=== PATIENT | female | born 1935 ===

== ENCOUNTER 2021-01-31 06:58 | Inpatient (IN) | payer OTHER ==
[2021-01-31] MEDS ORDERED: HALOPERIDOL DECANOATE 100 MG/ML IM ONE ×2 (08:02→09:29)
[2021-01-31] MEDS ORDERED: SODIUM CHLORIDE 0.9% 500 ML INFUS.BAG IV ONE (08:05)
[2021-01-31] MEDS ORDERED: HALOPERIDOL LACTATE 5 MG/ML ONE ×2 (08:07→09:38)
[2021-01-31 08:17] LABS: ALBUMIN 3.4 g/dl (3.4-5.0); CALCIUM 9.3 mg/dL (8.5-10.1); MAGNESIUM 2.3 mg/dL (1.8-2.4)
[2021-01-31 08:18] LABS: BASO % 0.4 % (0-2.0); BLOOD UREA NITROGEN 21.3 mg/dL (7-18); EOS % 0.1 % (0-4.5); HEMATOCRIT 33.6 % (32.4-45.2); HEMOGLOBIN 11.3 GM/dL (10.7-15.3); LYMPH % 8.4 % (8-40); MCH 27.9 pg (25.7-33.7); MCHC 33.6 g/dl (32.0-36.0); MEAN PLT VOLUME 8.2 fl (7.5-11.1); MONO % 7.7 % (3.8-10.2); NEUT % 83.4 % (42.8-82.8); PLATELET COUNT 399 K/MM3 (134-434); RBC 4.05 M/mm3 (3.60-5.2); RDW 15.2 % (11.6-15.6); WHITE BLOOD COUNT 9.9 K/mm3 (4.0-10.0)
[2021-01-31 08:21] LABS: CREATININE 0.7 mg/dL (0.55-1.3)
[2021-01-31 08:22] LABS: TOT PROT 7.8 g/dl (6.4-8.2)
[2021-01-31 08:27] LABS: EPI CELLS 4 /uL (0-25.1); HYALINE CASTS 1 /uL (0-3.1); PH,URINE 7.5 (5.0-8.0); URINE APPEARANCE CLEAR; URINE BACTERIA 5 /uL (0-1359); URINE BILIRUBIN NEGATIVE (NEGATIVE); URINE COLOR YELLOW; URINE GLUCOSE (UA) NEGATIVE (NEGATIVE); URINE KETONE TRACE (NEGATIVE); URINE LEUK ESTERASE TRACE (NEGATIVE); URINE NITRITE NEGATIVE (NEGATIVE); URINE PROTEIN 1+ (NEGATIVE); URINE RBC 8 /uL (0-23.9); URINE WBC 1 /uL (0-25.8)
[2021-01-31] MEDS ORDERED: DEXTROSE 5%-0.45% SALINE 1,000 ML IV SCH ×2 (12:30→14:24)
[2021-01-31] MEDS ORDERED: PATIENT'S OWN MEDICATION (NON-FORMULARY) (Olopatadine Hcl [Olopatadine Hcl] 2.5 ML Drops) OD PRN (14:44)
[2021-01-31] MEDS ORDERED: THIAMINE HCL 200 MG/2 ML VIAL IVPB ONE (15:09)
[2021-01-31] MEDS: ACETAMINOPHEN 325 MG TABLET (FP) PO PRN (15:18)
[2021-01-31] MEDS ORDERED: PT OWN MED DRAWER 7, Y5N ONE (17:13)
[2021-01-31] MEDS: DEXTROSE 5%-0.45% SALINE 1,000 ML IV SCH (17:17)
[2021-01-31] MEDS: DONEPEZIL HCL 10 MG TABLET (FP) PO SCH (20:37)
[2021-01-31] MEDS: LATANOPROST 0.005% OPHTH SOLN 2.5ML BOTTLE OU SCH (21:08)
[2021-01-31] MEDS: MELATONIN 5 MG TABLETS PO SCH (21:08)
[2021-02-01] MEDS: ALPRAZolam 1 MG TABLET PO PRN ×2 (06:39→22:15)
[2021-02-01 07:34] LABS: HEMATOCRIT 32.8 % (32.4-45.2); MCH 28.5 pg (25.7-33.7); MCHC 33.5 g/dl (32.0-36.0); PLATELET COUNT 349 K/MM3 (134-434); RBC 3.86 M/mm3 (3.60-5.2); RDW 15.2 % (11.6-15.6); WHITE BLOOD COUNT 7.4 K/mm3 (4.0-10.0)
[2021-02-01 08:03] LABS: CREATININE 0.5 mg/dL (0.55-1.3)
[2021-02-01 08:04] LABS: ALBUMIN 2.9 g/dl (3.4-5.0); BLOOD UREA NITROGEN 9.6 mg/dL (7-18)
[2021-02-01 08:05] LABS: BILIRUBIN,TOTAL 0.8 mg/dL (0.2-1); TOT PROT 6.6 g/dl (6.4-8.2)
[2021-02-01 08:06] LABS: CALCIUM 8.8 mg/dL (8.5-10.1); MAGNESIUM 1.9 mg/dL (1.8-2.4); PHOSPHOROUS 3.1 mg/dL (2.5-4.9)
[2021-02-01] MEDS ORDERED: ENOXAPARIN NA (PORCINE) 40 MG/0.4 ML DISP.SYRIN SQ SCH (10:00)
[2021-02-01] MEDS: DEXTROSE 5%-0.45% SALINE 1,000 ML IV SCH ×2 (11:04→17:25)
[2021-02-01] MEDS: ENOXAPARIN NA (PORCINE) 30 MG/0.3 ML DISP.SYRIN SQ SCH (11:44)
[2021-02-01] MEDS: busPIRone HCL 5 MG TABLET PO SCH (11:45)
[2021-02-01] MEDS: THIAMINE HCL 100 MG TABLET (FP) PO SCH (11:45)
[2021-02-01] MEDS: MULTIVITAMINS (DAILY MVI) TABLET (FP) PO SCH (11:45)
[2021-02-01] MEDS: DONEPEZIL HCL 10 MG TABLET (FP) PO SCH (22:15)
[2021-02-01] MEDS: MELATONIN 5 MG TABLETS PO SCH (22:15)
[2021-02-01] MEDS: LATANOPROST 0.005% OPHTH SOLN 2.5ML BOTTLE OU SCH (22:16)
[2021-02-02] MEDS: DEXTROSE 5%-0.45% SALINE 1,000 ML IV SCH ×2 (06:36→22:08)
[2021-02-02 07:29] LABS: BASO % 0.6 % (0-2.0); EOS % 3.1 % (0-4.5); HEMATOCRIT 30.5 % (32.4-45.2); HEMOGLOBIN 10.5 GM/dL (10.7-15.3); LYMPH % 16.8 % (8-40); MCH 28.1 pg (25.7-33.7); MCHC 34.4 g/dl (32.0-36.0); MEAN CELL VOLUME 81.8 fl (80-96); MEAN PLT VOLUME 7.3 fl (7.5-11.1); MONO % 8.5 % (3.8-10.2); PLATELET COUNT 324 K/MM3 (134-434); RBC 3.73 M/mm3 (3.60-5.2); RDW 14.7 % (11.6-15.6); WHITE BLOOD COUNT 5.1 K/mm3 (4.0-10.0)
[2021-02-02 07:54] LABS: ALBUMIN 2.7 g/dl (3.4-5.0); CALCIUM 8.3 mg/dL (8.5-10.1); MAGNESIUM 1.8 mg/dL (1.8-2.4)
[2021-02-02 07:58] LABS: CREATININE 0.4 mg/dL (0.55-1.3)
[2021-02-02 07:59] LABS: BILIRUBIN,TOTAL 0.9 mg/dL (0.2-1); TOT PROT 6.4 g/dl (6.4-8.2)
[2021-02-02] MEDS: ENOXAPARIN NA (PORCINE) 30 MG/0.3 ML DISP.SYRIN SQ SCH (10:20)
[2021-02-02] MEDS: ACETAMINOPHEN 325 MG TABLET (FP) PO PRN (10:20)
[2021-02-02] MEDS: MULTIVITAMINS (DAILY MVI) TABLET (FP) PO SCH (10:21)
[2021-02-02] MEDS: THIAMINE HCL 100 MG TABLET (FP) PO SCH (10:21)
[2021-02-02] MEDS: busPIRone HCL 5 MG TABLET PO SCH (10:21)
[2021-02-02 12:41] VITALS: BMI 18.7
[2021-02-02] MEDS ORDERED: POTASSIUM CHLORIDE ORAL LIQUID 20 MEQ/15 ML PO ONE (12:50)
[2021-02-02] MEDS: MELATONIN 5 MG TABLETS PO SCH (22:06)
[2021-02-02] MEDS: DONEPEZIL HCL 10 MG TABLET (FP) PO SCH (22:06)
[2021-02-02] MEDS: LATANOPROST 0.005% OPHTH SOLN 2.5ML BOTTLE OU SCH (22:12)
[2021-02-03] MEDS: LEVOTHYROXINE NA 25 MCG TABLET (FP) PO SCH (06:59)
[2021-02-03 08:20] LABS: BASO % 0.5 % (0-2.0); EOS % 1.1 % (0-4.5); HEMATOCRIT 31.7 % (32.4-45.2); HEMOGLOBIN 10.7 GM/dL (10.7-15.3); LYMPH % 12.1 % (8-40); MCH 27.8 pg (25.7-33.7); MCHC 33.8 g/dl (32.0-36.0); MEAN CELL VOLUME 82.3 fl (80-96); MEAN PLT VOLUME 7.4 fl (7.5-11.1); MONO % 6.3 % (3.8-10.2); PLATELET COUNT 395 K/MM3 (134-434); RBC 3.85 M/mm3 (3.60-5.2); WHITE BLOOD COUNT 5.2 K/mm3 (4.0-10.0)
[2021-02-03 08:39] LABS: CALCIUM 8.9 mg/dL (8.5-10.1)
[2021-02-03 08:43] LABS: CREATININE 0.4 mg/dL (0.55-1.3)
[2021-02-03 08:44] LABS: BILIRUBIN,TOTAL 0.7 mg/dL (0.2-1); TOT PROT 6.8 g/dl (6.4-8.2)
[2021-02-03] MEDS: ENOXAPARIN NA (PORCINE) 30 MG/0.3 ML DISP.SYRIN SQ SCH (09:45)
[2021-02-03] MEDS: busPIRone HCL 5 MG TABLET PO SCH (09:45)
[2021-02-03] MEDS: THIAMINE HCL 100 MG TABLET (FP) PO SCH (09:45)
[2021-02-03] MEDS: MULTIVITAMINS (DAILY MVI) TABLET (FP) PO SCH (09:45)
[2021-02-03] MEDS: DEXTROSE 5%-0.45% SALINE 1,000 ML IV SCH (19:08)
[2021-02-03] MEDS: DONEPEZIL HCL 10 MG TABLET (FP) PO SCH (21:11)
[2021-02-03] MEDS: MELATONIN 5 MG TABLETS PO SCH (22:11)
[2021-02-03] MEDS: LATANOPROST 0.005% OPHTH SOLN 2.5ML BOTTLE OU SCH (22:12)
[2021-02-04] MEDS: LEVOTHYROXINE NA 25 MCG TABLET (FP) PO SCH (06:00)
[2021-02-04 08:31] LABS: BASO % 0.4 % (0-2.0); EOS % 1.5 % (0-4.5); HEMATOCRIT 35.2 % (32.4-45.2); HEMOGLOBIN 11.6 GM/dL (10.7-15.3); LYMPH % 14.9 % (8-40); MCH 27.2 pg (25.7-33.7); MEAN CELL VOLUME 82.4 fl (80-96); MEAN PLT VOLUME 8.1 fl (7.5-11.1); MONO % 7.8 % (3.8-10.2); NEUT % 75.4 % (42.8-82.8); PLATELET COUNT 458 K/MM3 (134-434); RBC 4.27 M/mm3 (3.60-5.2); RDW 15.2 % (11.6-15.6); WHITE BLOOD COUNT 6.8 K/mm3 (4.0-10.0)
[2021-02-04 08:32] LABS: ALBUMIN 3.1 g/dl (3.4-5.0); BLOOD UREA NITROGEN 6.6 mg/dL (7-18); CALCIUM 9.1 mg/dL (8.5-10.1)
[2021-02-04 08:36] LABS: CREATININE 0.5 mg/dL (0.55-1.3)
[2021-02-04 08:37] LABS: BILIRUBIN,TOTAL 0.6 mg/dL (0.2-1)
[2021-02-04] MEDS: ENOXAPARIN NA (PORCINE) 30 MG/0.3 ML DISP.SYRIN SQ SCH (09:45)
[2021-02-04] MEDS: MULTIVITAMINS (DAILY MVI) TABLET (FP) PO SCH (09:46)
[2021-02-04] MEDS: busPIRone HCL 5 MG TABLET PO SCH (09:46)
[2021-02-04] MEDS: THIAMINE HCL 100 MG TABLET (FP) PO SCH (09:46)
[2021-02-04 12:21] LABS: MAGNESIUM 1.9 mg/dL (1.8-2.4)
[2021-02-04] MEDS: OLOPATADINE 0.1% OD SCH ×2 (16:41→22:50)
[2021-02-04] MEDS ORDERED: PT OWN MED DRAWER 7, Y5N ONE (22:40)
[2021-02-04] MEDS: MELATONIN 5 MG TABLETS PO SCH (22:44)
[2021-02-04] MEDS: DONEPEZIL HCL 10 MG TABLET (FP) PO SCH (22:44)
[2021-02-04] MEDS: LATANOPROST 0.005% OPHTH SOLN 2.5ML BOTTLE OU SCH (22:50)
[2021-02-05] MEDS: DEXTROSE 5%-0.45% SALINE 1,000 ML IV SCH (01:12)
[2021-02-05] MEDS: LEVOTHYROXINE NA 25 MCG TABLET (FP) PO SCH (06:28)
[2021-02-05 07:49] LABS: ALBUMIN 2.9 g/dl (3.4-5.0); BLOOD UREA NITROGEN 12.1 mg/dL (7-18); MAGNESIUM 2.1 mg/dL (1.8-2.4)
[2021-02-05 07:51] LABS: BASO % 0.6 % (0-2.0); EOS % 1.6 % (0-4.5); HEMATOCRIT 31.9 % (32.4-45.2); HEMOGLOBIN 10.5 GM/dL (10.7-15.3); LYMPH % 18.7 % (8-40); MCH 27.3 pg (25.7-33.7); MCHC 32.8 g/dl (32.0-36.0); MEAN CELL VOLUME 83.2 fl (80-96); MEAN PLT VOLUME 7.8 fl (7.5-11.1); MONO % 8.5 % (3.8-10.2); NEUT % 70.6 % (42.8-82.8); PLATELET COUNT 383 K/MM3 (134-434); RBC 3.83 M/mm3 (3.60-5.2); RDW 14.9 % (11.6-15.6); WHITE BLOOD COUNT 5.3 K/mm3 (4.0-10.0)
[2021-02-05 07:52] LABS: CREATININE 0.5 mg/dL (0.55-1.3)
[2021-02-05 07:53] LABS: TOT PROT 6.4 g/dl (6.4-8.2)
[2021-02-05 07:54] LABS: BILIRUBIN,TOTAL 0.6 mg/dL (0.2-1)
[2021-02-05] MEDS ORDERED: PT OWN MED DRAWER 7, Y5N ONE (09:06)
[2021-02-05] MEDS: MULTIVITAMINS (DAILY MVI) TABLET (FP) PO SCH (09:17)
[2021-02-05] MEDS: THIAMINE HCL 100 MG TABLET (FP) PO SCH (09:17)
[2021-02-05] MEDS: busPIRone HCL 5 MG TABLET PO SCH (09:17)
[2021-02-05] MEDS: OLOPATADINE 0.1% OD SCH ×2 (09:21→22:32)
[2021-02-05] MEDS: ALPRAZolam 1 MG TABLET PO PRN (18:02)
[2021-02-05] MEDS: DONEPEZIL HCL 10 MG TABLET (FP) PO SCH (22:31)
[2021-02-05] MEDS: MELATONIN 5 MG TABLETS PO SCH (22:31)
[2021-02-05] MEDS: LATANOPROST 0.005% OPHTH SOLN 2.5ML BOTTLE OU SCH (22:31)
[2021-02-06] MEDS: LEVOTHYROXINE NA 25 MCG TABLET (FP) PO SCH (06:26)
[2021-02-06 07:14] LABS: BASO % 0.8 % (0-2.0); EOS % 3.2 % (0-4.5); HEMATOCRIT 29.8 % (32.4-45.2); HEMOGLOBIN 9.9 GM/dL (10.7-15.3); MCH 27.6 pg (25.7-33.7); MCHC 33.2 g/dl (32.0-36.0); MEAN CELL VOLUME 83.2 fl (80-96); MEAN PLT VOLUME 7.3 fl (7.5-11.1); MONO % 9.8 % (3.8-10.2); NEUT % 65.2 % (42.8-82.8); PLATELET COUNT 361 10^3/uL (134-434); RBC 3.59 M/mm3 (3.60-5.2); RDW 15.2 % (11.6-15.6); WHITE BLOOD COUNT 5.3 K/mm3 (4.0-10.0)
[2021-02-06 07:37] LABS: ALBUMIN 2.7 g/dl (3.4-5.0); BLOOD UREA NITROGEN 16.8 mg/dL (7-18); CALCIUM 8.9 mg/dL (8.5-10.1); MAGNESIUM 2.3 mg/dL (1.8-2.4)
[2021-02-06 07:40] LABS: CREATININE 0.5 mg/dL (0.55-1.3)
[2021-02-06 07:42] LABS: BILIRUBIN,TOTAL 0.6 mg/dL (0.2-1); TOT PROT 5.9 g/dl (6.4-8.2)
[2021-02-06] MEDS: THIAMINE HCL 100 MG TABLET (FP) PO SCH (10:01)
[2021-02-06] MEDS: busPIRone HCL 5 MG TABLET PO SCH (10:01)
[2021-02-06] MEDS: ALPRAZolam 1 MG TABLET PO PRN ×2 (10:02→21:13)
[2021-02-06] MEDS: MULTIVITAMINS (DAILY MVI) TABLET (FP) PO SCH (10:03)
[2021-02-06] MEDS: OLOPATADINE 0.1% OD SCH ×2 (10:03→22:42)
[2021-02-06] MEDS ORDERED: PT OWN MED DRAWER 7, Y5N ONE (10:04)
[2021-02-06] MEDS: ACETAMINOPHEN 325 MG TABLET (FP) PO PRN ×2 (15:28→20:31)
[2021-02-06] MEDS: DONEPEZIL HCL 10 MG TABLET (FP) PO SCH (20:31)
[2021-02-06] MEDS: BACITRACIN 15 GM TUBE TOPICAL OINTMENT TP SCH (21:23)
[2021-02-06] MEDS: MELATONIN 5 MG TABLETS PO SCH (21:34)
[2021-02-06] MEDS: LATANOPROST 0.005% OPHTH SOLN 2.5ML BOTTLE OU SCH (22:42)
[2021-02-07] MEDS ORDERED: ALPRAZolam 0.25 MG TABLET PO ONE (04:28)
[2021-02-07] MEDS: ACETAMINOPHEN 325 MG TABLET (FP) PO PRN ×2 (04:35→10:05)
[2021-02-07] MEDS: LEVOTHYROXINE NA 25 MCG TABLET (FP) PO SCH (06:15)
[2021-02-07] MEDS: MULTIVITAMINS (DAILY MVI) TABLET (FP) PO SCH (09:47)
[2021-02-07] MEDS: THIAMINE HCL 100 MG TABLET (FP) PO SCH (09:47)
[2021-02-07] MEDS: busPIRone HCL 5 MG TABLET PO SCH (09:47)
[2021-02-07] MEDS: ALPRAZolam 1 MG TABLET PO PRN ×2 (09:47→19:30)
[2021-02-07] MEDS: BACITRACIN 15 GM TUBE TOPICAL OINTMENT TP SCH ×2 (10:05→21:10)
[2021-02-07] MEDS: QUEtiapine FUMARATE 25 MG TABLET PO SCH ×2 (10:05→21:10)
[2021-02-07] MEDS: OLOPATADINE 0.1% OD SCH ×2 (10:05→21:11)
[2021-02-07 11:31] LABS: EOS % 2.6 % (0-4.5); HEMATOCRIT 31.7 % (32.4-45.2); HEMOGLOBIN 10.8 GM/dL (10.7-15.3); LYMPH % 11.7 % (8-40); MCH 27.9 pg (25.7-33.7); MEAN CELL VOLUME 82.1 fl (80-96); MEAN PLT VOLUME 7.5 fl (7.5-11.1); MONO % 6.4 % (3.8-10.2); NEUT % 78.3 % (42.8-82.8); PLATELET COUNT 466 10^3/uL (134-434); RBC 3.86 M/mm3 (3.60-5.2); RDW 15.1 % (11.6-15.6); WHITE BLOOD COUNT 8.2 K/mm3 (4.0-10.0)
[2021-02-07 11:55] LABS: ALBUMIN 3.2 g/dl (3.4-5.0); BLOOD UREA NITROGEN 16.6 mg/dL (7-18); CALCIUM 9.1 mg/dL (8.5-10.1)
[2021-02-07 11:56] LABS: MAGNESIUM 2.1 mg/dL (1.8-2.4)
[2021-02-07 11:59] LABS: CREATININE 0.6 mg/dL (0.55-1.3)
[2021-02-07 12:00] LABS: BILIRUBIN,TOTAL 0.8 mg/dL (0.2-1); TOT PROT 6.8 g/dl (6.4-8.2)
[2021-02-07 17:18] LABS: EPI CELLS 12 /uL (0-25.1); HYALINE CASTS 2 /uL (0-3.1); PH,URINE 6.5 (5.0-8.0); URINE APPEARANCE CLEAR; URINE BACTERIA 42 /uL (0-1359); URINE BILIRUBIN NEGATIVE (NEGATIVE); URINE COLOR YELLOW; URINE GLUCOSE (UA) NEGATIVE (NEGATIVE); URINE KETONE NEGATIVE (NEGATIVE); URINE LEUK ESTERASE TRACE (NEGATIVE); URINE NITRITE NEGATIVE (NEGATIVE); URINE PROTEIN NEGATIVE (NEGATIVE); URINE RBC 10 /uL (0-23.9); URINE UROBILINOGEN 0.2 mg/dL (0.2-1.0); URINE WBC 20 /uL (0-25.8)
[2021-02-07] MEDS: DONEPEZIL HCL 10 MG TABLET (FP) PO SCH (20:03)
[2021-02-07] MEDS: MELATONIN 5 MG TABLETS PO SCH (21:10)
[2021-02-07] MEDS: LATANOPROST 0.005% OPHTH SOLN 2.5ML BOTTLE OU SCH (21:11)
[2021-02-08] MEDS: LEVOTHYROXINE NA 25 MCG TABLET (FP) PO SCH (06:01)
[2021-02-08] MEDS: MULTIVITAMINS (DAILY MVI) TABLET (FP) PO SCH (10:43)
[2021-02-08] MEDS: THIAMINE HCL 100 MG TABLET (FP) PO SCH (10:43)
[2021-02-08] MEDS: busPIRone HCL 5 MG TABLET PO SCH (10:43)
[2021-02-08] MEDS: QUEtiapine FUMARATE 25 MG TABLET PO SCH ×2 (10:44→21:04)
[2021-02-08] MEDS: BACITRACIN 15 GM TUBE TOPICAL OINTMENT TP SCH ×2 (10:44→21:05)
[2021-02-08] MEDS: OLOPATADINE 0.1% OD SCH ×2 (10:44→21:06)
[2021-02-08] MEDS: ALPRAZolam 1 MG TABLET PO PRN (12:08)
[2021-02-08] MEDS: DONEPEZIL HCL 10 MG TABLET (FP) PO SCH (21:04)
[2021-02-08] MEDS: MELATONIN 5 MG TABLETS PO SCH (21:05)
[2021-02-08] MEDS: LATANOPROST 0.005% OPHTH SOLN 2.5ML BOTTLE OU SCH (21:12)
[2021-02-09] MEDS: LEVOTHYROXINE NA 25 MCG TABLET (FP) PO SCH (06:31)
[2021-02-09] MEDS: BACITRACIN 15 GM TUBE TOPICAL OINTMENT TP SCH ×2 (09:49→21:56)
[2021-02-09] MEDS: QUEtiapine FUMARATE 25 MG TABLET PO SCH ×2 (09:49→21:28)
[2021-02-09] MEDS: busPIRone HCL 5 MG TABLET PO SCH (09:49)
[2021-02-09] MEDS: THIAMINE HCL 100 MG TABLET (FP) PO SCH (09:49)
[2021-02-09] MEDS: MULTIVITAMINS (DAILY MVI) TABLET (FP) PO SCH (09:49)
[2021-02-09] MEDS: OLOPATADINE 0.1% OD SCH ×2 (09:52→21:29)
[2021-02-09] MEDS: ALPRAZolam 1 MG TABLET PO PRN (15:45)
[2021-02-09] MEDS ORDERED: PT OWN MED DRAWER 7, Y5N ONE (21:24)
[2021-02-09] MEDS: DONEPEZIL HCL 10 MG TABLET (FP) PO SCH (21:27)
[2021-02-09] MEDS: MELATONIN 5 MG TABLETS PO SCH (21:28)
[2021-02-09] MEDS: LATANOPROST 0.005% OPHTH SOLN 2.5ML BOTTLE OU SCH (21:29)
[2021-02-10] MEDS: LEVOTHYROXINE NA 25 MCG TABLET (FP) PO SCH (06:47)
[2021-02-10] MEDS: MULTIVITAMINS (DAILY MVI) TABLET (FP) PO SCH (09:15)
[2021-02-10] MEDS: busPIRone HCL 5 MG TABLET PO SCH (09:15)
[2021-02-10] MEDS: THIAMINE HCL 100 MG TABLET (FP) PO SCH (09:15)
[2021-02-10] MEDS: QUEtiapine FUMARATE 25 MG TABLET PO SCH ×2 (09:15→20:59)
[2021-02-10] MEDS: BACITRACIN 15 GM TUBE TOPICAL OINTMENT TP SCH ×2 (09:17→21:03)
[2021-02-10] MEDS: OLOPATADINE 0.1% OD SCH ×2 (09:24→21:03)
[2021-02-10] MEDS ORDERED: ALPRAZolam 1 MG TABLET PO PRN (19:28)
[2021-02-10] MEDS: ACETAMINOPHEN 325 MG TABLET (FP) PO PRN (19:46)
[2021-02-10] MEDS: DONEPEZIL HCL 10 MG TABLET (FP) PO SCH (21:00)
[2021-02-10] MEDS: MELATONIN 5 MG TABLETS PO SCH (21:00)
[2021-02-10] MEDS: LATANOPROST 0.005% OPHTH SOLN 2.5ML BOTTLE OU SCH (21:03)
[2021-02-11] MEDS: LEVOTHYROXINE NA 25 MCG TABLET (FP) PO SCH (06:26)
[2021-02-11] MEDS: busPIRone HCL 5 MG TABLET PO SCH (09:22)
[2021-02-11] MEDS: MULTIVITAMINS (DAILY MVI) TABLET (FP) PO SCH (09:22)
[2021-02-11] MEDS: ACETAMINOPHEN 325 MG TABLET (FP) PO PRN ×2 (09:22→21:00)
[2021-02-11] MEDS: QUEtiapine FUMARATE 25 MG TABLET PO SCH ×2 (09:22→20:59)
[2021-02-11] MEDS: THIAMINE HCL 100 MG TABLET (FP) PO SCH (09:22)
[2021-02-11] MEDS: BACITRACIN 15 GM TUBE TOPICAL OINTMENT TP SCH ×2 (09:32→20:59)
[2021-02-11] MEDS: OLOPATADINE 0.1% OD SCH ×2 (09:33→21:03)
[2021-02-11] MEDS ORDERED: ALPRAZolam 0.25 MG TABLET PO PRN (09:59)
[2021-02-11] MEDS: ALPRAZolam 1 MG TABLET PO PRN (17:59)
[2021-02-11] MEDS: MELATONIN 5 MG TABLETS PO SCH (20:59)
[2021-02-11] MEDS: DONEPEZIL HCL 10 MG TABLET (FP) PO SCH (20:59)
[2021-02-11] MEDS: LATANOPROST 0.005% OPHTH SOLN 2.5ML BOTTLE OU SCH (21:03)
[2021-02-12] MEDS: LEVOTHYROXINE NA 25 MCG TABLET (FP) PO SCH (06:11)
[2021-02-12] MEDS: ACETAMINOPHEN 325 MG TABLET (FP) PO PRN (08:30)
[2021-02-12] MEDS: ALPRAZolam 1 MG TABLET PO PRN (08:30)
[2021-02-12 08:41] VITALS: TEMP 98.1
[2021-02-12] MEDS: QUEtiapine FUMARATE 25 MG TABLET PO SCH (09:44)
[2021-02-12] MEDS: MULTIVITAMINS (DAILY MVI) TABLET (FP) PO SCH (09:44)
[2021-02-12] MEDS: THIAMINE HCL 100 MG TABLET (FP) PO SCH (09:44)
[2021-02-12] MEDS: busPIRone HCL 5 MG TABLET PO SCH (09:44)
[2021-02-12] MEDS: OLOPATADINE 0.1% OD SCH (09:51)
[2021-02-12] MEDS: BACITRACIN 15 GM TUBE TOPICAL OINTMENT TP SCH (09:51)
[2021-02-12 14:36] VITALS: BP 129/73; PULSE 69
== END 2021-02-12 16:58 | DRG 70 ==
LOC: JER 06:58 → JERBED 12:56 → J7W 14:25
PROVIDERS: ATTEND Nurse Practitioner Acute Care
DX: G93.41 Metabolic encephalopathy (principal); E43 Unspecified severe protein-calorie malnutrition; R62.7 Adult failure to thrive; F03.90 Unspecified dementia, unspecified severity, without behavioral disturbance, psychotic disturbance, mood disturbance, and anxiety; R74.8 Abnormal levels of other serum enzymes; E86.0 Dehydration; R53.1 Weakness; R79.89 Other specified abnormal findings of blood chemistry; F41.9 Anxiety disorder, unspecified; F41.0 Panic disorder [episodic paroxysmal anxiety]; G47.00 Insomnia, unspecified; S50.11XA Contusion of right forearm, initial encounter; G63 Polyneuropathy in diseases classified elsewhere; E03.9 Hypothyroidism, unspecified
CPT/HCPCS: 36415; 70450-TC; 71045-TC-FY; 76882-TC-RT-FY; 80053; 81003; 82550; 82553; 82607; 82746; 82962; 83036; 83735; 84100; 84436; 84439; 84443; 84484; 85025; 85027; 86780; 87086; 93005; 93010; 97116-GP; 97162-GP; 99285-25; C9803; U0003; U0005